=== PATIENT | male | born 1985 | race Caucasian/White ===

== ENCOUNTER 2020-08-21 11:16 | Emergency (ER) ==
[~2020-08-21] VITALS: Ht 167.6 cm; Wt 73.6 kg
[2020-08-21] MEDS ORDERED: LEXAPRO20 MG (11:34)
== END 2020-08-21 12:20 | disposition home or self-care (01) ==
LOC: COL.ER 11:16
DX: J95.830 Postprocedural hemorrhage of a respiratory system organ or structure following a respiratory system procedure (principal); F32.9 Major depressive disorder, single episode, unspecified; F41.9 Anxiety disorder, unspecified; Z90.89 Acquired absence of other organs; Y83.8 Other surgical procedures as the cause of abnormal reaction of the patient, or of later complication, without mention of misadventure at the time of the procedure